=== PATIENT | female | born 1980 | race Caucasian/White ===

== ENCOUNTER 2018-09-13 14:48 | Outpatient (CLI) ==
--- NOTE | 2018-09-13 15:57 | DI ---
EXAM: CHEST FRONTAL AND LATERAL VIEWS HISTORY: Chest pain. COMPARISON: None FINDINGS: Heart size and mediastinal contour within normal limits. No acute infiltrates. Yoselyn l vascularity with no pleural fluid or pneumothorax. The bony thorax has no acute finding. IMPRESSION: No acute process.
== END 2018-09-13 14:49 | disposition home or self-care (01) ==
LOC: RAD 14:48
PROVIDERS: ATTEND Nurse Practitioner Family
DX: R07.89 Other chest pain (principal)
CPT/HCPCS: 93005; 93010